=== PATIENT | female | born 1960 | race American Indian/Alaskan Native ===

== ENCOUNTER 2016-07-08 20:34 | Emergency (ER) | payer MEDICARE ==
[2016-07-08 21:08] LABS: Bilirubin,Urine NEG (Negative); Blood,Urine MOD (Negative); Ketones,Urine NEG (Negative); Leukocyte Esterase,Urine NEG (Negative); Mucus,Urine FEW /HPF; Nitrite,Urine NEG (Negative); Protein,Urine <15 mg/dL mg/dL (Negative); RBC,Urine < 1.0 /HPF (0.0-6.0); Urobilinogen,Urine < 2.0 mg/dL (<2.0); WBC,Urine < 1.0 /HPF (0.0-6.0)
[2016-07-08] MEDS ORDERED: TORADOL IM ONE (23:45)
[2016-07-08] MEDS ORDERED: NORCO 5/325 PO ONE (23:45)
[2016-07-09 00:44] VITALS: BP 132/78
--- NOTE | 2016-07-09 00:52 | Cat Scan Report ---
FINAL REPORT PROCEDURE: CT ABDOMEN PELVIS WO CON TECHNIQUE: Computerized axial tomography of the abdomen and pelvis was performed without intravenous contrast. This study is performed without intravascular contrast material and its sensitivity for abdominal and pelvic pathology, including neoplasms, inflammation, abscess, free fluid, thrombosis, arterial dissection and infarction, is reduced compared with a contrast enhanced study. HISTORY: flank pain COMPARISON: 09/23/2015 FINDINGS: Visualized lower thorax: No significant abnormality. Liver: Normal size and attenuation. Spleen: Normal size and attenuation. Gallbladder and biliary system: The gallbladder is absent. No dilatation of the biliary ductal system. Pancreas: Normal. Adrenals: Small 8 millimeter adrenal nodule along the left is noted. This has not changed.. Kidneys: Both kidneys have a normal size. No hydronephrosis. There are few small 1 millimeter stones in the corticomedullary region of the right kidney.. GI tract: The stomach is normal. The small bowel has a normal caliber. No obstruction, ileus or enteritis. Cecum and appendix are normal. Moderate diverticular change in the distal colon. No inflammatory process.. Lymph nodes and mesentery: Normal. Vasculature: Normal. Bladder: Normal. Reproductive organs: No pelvic masses.. Peritoneum: No free fluid. Musculoskeletal structures: No significant abnormality. Other: None. IMPRESSION: There is no evidence of intestinal or urinary tract obstruction. No ileus or enteritis. Moderate diverticulosis of the distal colon. The appendix is normal. Previous cholecystectomy..
--- NOTE | 2016-07-09 02:17 | Emergency Department Report ---
ED Back Pain/Injury HPI - General Chief Complaint: Back Pain/Injury Stated Complaint: BILTERAL HAND/FOOT PAIN/NUMBNESS Source: patient Mode of arrival: Ambulatory Limitations: No Limitations - History of Present Illness Initial Comments: 55 year old female presents to ED with chronic bilateral hand and feet pain and lower left back pain x 3-4months. patient states she has history of arthritis and kidney stones. patient states she has dysuria but upon re-examination states she does not. patient is stable, neurologically intact and in no acute distress. MD Complaint: back pain, other (dysuria, arthritic pain in hands and feet) -: Gradual Similar Symptoms Previously: Yes (history of kidney stones, history of arthritis ) Radiation: flank Severity: mild Consistency: constant Context: history of kidney stones Associated Symptoms: other (no saddle anesthesia). denies: confusion, weakness , chest pain, numbness, difficulty walking, difficulty urinating, incontinence, fever/chills, constipation, headaches, abdominal pain, nausea/vomiting, shortness of breath - Related Data Previous Rx's Medication Instructions Recorded Last Taken Type Ketorolac [Toradol] 10 mg PO Q6H PRN #20 tablet 07/09/16 Unknown Rx Phenazopyridine [Pyridium] 100 mg PO TID #9 tab 07/09/16 Unknown Rx Allergies Allergy/AdvReac Type Severity Reaction Status Date / Time No Known Allergies Allergy Verified 07/08/16 20:46 ED Review of Systems ROS: Stated complaint: BILTERAL HAND/FOOT PAIN/NUMBNESS Other details as noted in HPI Constitutional: denies: chills, fever Eyes: denies: eye pain, eye discharge, vision change ENT: denies: ear pain, throat pain Respiratory: denies: cough, shortness of breath, wheezing Cardiovascular: denies: chest pain, palpitations Endocrine: no symptoms reported Gastrointestinal: denies: abdominal pain, nausea, vomiting, diarrhea Genitourinary: denies: urgency, dysuria, discharge Musculoskeletal: back pain, joint swelling, arthralgia Skin: denies: rash, lesions Neurological: denies: headache, weakness, paresthesias Psychiatric: denies: anxiety, depression Hematological/Lymphatic: denies: easy bleeding, easy bruising ED Past Medical Hx - Past Medical History Previous Medical History?: Yes Hx Hypertension: Yes Hx GERD: Yes Hx Psychiatric Treatment: Yes (depression bipolar) - Surgical History Past Surgical History?: Yes Hx Cholecystectomy: Yes Additional Surgical History: ovarian cyst removed. x 1 - Social History Smoking Status: Unknown if ever smoked - Medications Home Medications: Home Medications Medication Instructions Recorded Confirmed Last Taken Type Ketorolac [Toradol] 10 mg PO Q6H PRN #20 tablet 07/09/16 Unknown Rx Phenazopyridine [Pyridium] 100 mg PO TID #9 tab 07/09/16 Unknown Rx ED Physical Exam - General Limitations: No Limitations General appearance: alert, in no apparent distress - Head Head exam: Present: atraumatic, normocephalic - Eye Eye exam: Present: normal appearance, PERRL, EOMI - ENT ENT exam: Present: normal exam, mucous membranes moist - Neck Neck exam: Present: normal inspection, full ROM - Respiratory Respiratory exam: Present: normal lung sounds bilaterally. Absent: respiratory distress, wheezes - Cardiovascular Cardiovascular Exam: Present: regular rate, normal rhythm. Absent: systolic murmur, diastolic murmur, rubs, gallop - GI/Abdominal GI/Abdominal exam: Present: soft, normal bowel sounds. Absent: distended, tenderness, guarding - External exam: Present: normal external exam Speculum exam: Present: normal speculum exam. Absent: vaginal bleeding Bi-manual exam: Present: normal bi-manual exam. Absent: cervical motion tendernes - Extremities Exam Extremities exam: Present: normal inspection, full ROM, tenderness (tenderness to bilateral hands and feet) - Back Exam Back exam: Present: normal inspection, full ROM, tenderness, CVA tenderness (L) - Neurological Exam Neurological exam: Present: alert, oriented X3, normal gait - Psychiatric Psychiatric exam: Present: normal affect, normal mood - Skin Skin exam: Present: warm, dry, intact, normal color. Absent: rash ED Course Vital Signs 07/08/16 07/09/16 20:40 00:40 Temperature 99.0 F 98.9 F Pulse Rate 91 H 90 Respiratory 18 18 Rate Blood Pressure 118/79 Blood Pressure 132/78 [Right] O2 Sat by Pulse 99 98 Oximetry ED Medical Decision Making - Lab Data Lab Results 07/08/16 Range/Units 20:45 Urine Color Yellow (Yellow) Urine Turbidity Clear (Clear) Urine pH 5.0 (5.0-7.0) Ur Specific [place] 1.018 (1.003-1.030) Urine Protein <15 mg/dl (Negative) mg/dL Urine Glucose (UA) Neg (Negative) mg/dL Urine Ketones Neg (Negative) mg/dL Urine Blood Mod (Negative) Urine Nitrite Neg (Negative) Urine Bilirubin Neg (Negative) Urine Urobilinogen < 2.0 (<2.0) mg/dL Ur Leukocyte Esterase Neg (Negative) Urine WBC (Auto) < 1.0 (0.0-6.0) /HPF Urine RBC (Auto) < 1.0 (0.0-6.0) /HPF U Epithel Cells (Auto) < 1.0 (0-13.0) /HPF Urine Mucus Few /HPF - Radiology Data Radiology results: report reviewed CT stone protocol No evidence of intestinal or urinary tract obstruction. No ileus or enteritis. Moderate diverticulosis of the distal colon. the appendix is normal. No significant musculoskeletal abnormality. - Medical Decision Making 55 year old female presents to ED with lower left back pain and bilateral hands and feet pain. patient states she has arthritic pain in hands and feet but has no medication for relief. patient also states she has history of kidney stones. patient has normal CT scan and decreased pain on re-examination. patient will be given RX for pain medication. patient is stable, neurologically intact and in no acute distress. Critical care attestation.: If time is entered above; I have spent that time in minutes in the direct care of this critically ill patient, excluding procedure time. ED Disposition Clinical Impression: Arthritis Back pain Qualifiers: Back pain location: low back pain Chronicity: acute Back pain laterality: left Sciatica presence: without sciatica Qualified Code(s): M54.5 - Low back pain Disposition: DISCHARGED TO HOME OR SELFCARE Is pt being admited?: No Does the pt Need Aspirin: No Condition: Stable Instructions: Osteoarthritis (ED) Prescriptions: Ketorolac [Toradol] 10 mg PO Q6H PRN #20 tablet PRN Reason: Pain Phenazopyridine [Pyridium] 100 mg PO TID #9 tab Referrals: MAGDY CANALES MD [Primary Care Provider] - 3-5 Days Forms: Work/School Release Form(ED)
== END 2016-07-09 02:41 | disposition home or self-care (01) ==
LOC: ED 20:34
DX: M19.90 Unspecified osteoarthritis, unspecified site (principal); M54.5 Low back pain; I10 Essential (primary) hypertension; K21.9 Gastro-esophageal reflux disease without esophagitis; F32.9 Major depressive disorder, single episode, unspecified
CPT/HCPCS: 74176; 81001; 87210; 87591; 96372; 99284; J1885